=== PATIENT | female | born 1995 | race Caucasian/White ===

== ENCOUNTER 2017-03-23 13:16 | Emergency (ER) | payer OTHER ==
[~2017-03-23] VITALS: Ht 165.1 cm; Wt 73.1 kg
[~2017-03-23 13:16] MED LIST: ADDERALL XR 3030 MG PO; AMOXICILLIN500 M1 PO; CLINDAMYCIN HC150 MG PO; CLONIDINE HCL0.1 MG PO; DEPAKOTE250 MG PO; Feosol; LAMICTAL200 MG PO; LITHIUM CARBON300 MG PO; LITHIUM CARBON450 MG PO; Motrin PO; NORCO 5/3251 TABLET PO; ORTHO EVRA PA1 PATCH PO; OXYCODONE HCL5 MG PO; QUETIAPINE FUM100 MG PO; RISPERDAL1 MG PO; RISPERDAL2 M1 PO; TRAZODONE HCL150 MG PO; TRAZODONE HCL50 MG PO; TYLENOL EXTRA500 MG PO; TYLENOL WITH C1 EACH PO; ULTRAM50 MG PO; VYVANSE20 MG PO; VYVANSE50 MG PO; ZOLOFT20 MG/ML
[2017-03-23] MEDS ORDERED: NARCAN4 MG NS (15:00)
[2017-03-23 15:17] VITALS: BP 99/68
== END 2017-03-23 15:18 | disposition home or self-care (01) ==
LOC: EME → EDBD 13:16 → EME 13:16
DX: T40.1X1A Poisoning by heroin, accidental (unintentional), initial encounter (principal); F17.200 Nicotine dependence, unspecified, uncomplicated
CPT/HCPCS: 99281; 99283

== ENCOUNTER 2017-08-12 01:32 | Emergency (ER) | payer OTHER ==
[~2017-08-12] VITALS: Ht 165.1 cm; Wt 66.9 kg
[~2017-08-12 01:32] MED LIST changes: +NARCAN4 MG NS
[2017-08-12] MEDS ORDERED: MOTRIN600 MG PO (02:13)
[2017-08-12] MEDS ORDERED: AUGMENTIN875 MG PO (02:13)
[2017-08-12] MEDS ORDERED: BACTROBAN OINTM22 GM TP (02:27)
[2017-08-12 02:30] VITALS: BP 108/81
== END 2017-08-12 02:31 | disposition home or self-care (01) ==
LOC: EME 01:32
DX: K04.7 Periapical abscess without sinus (principal); F17.200 Nicotine dependence, unspecified, uncomplicated
CPT/HCPCS: 99281; 99283

== ENCOUNTER 2017-09-16 08:11 | Emergency (ER) | payer OTHER ==
[~2017-09-16] VITALS: Ht 165.1 cm; Wt 67.2 kg
[~2017-09-16 08:11] MED LIST changes: +AUGMENTIN875 MG PO; +BACTROBAN OINTM22 GM TP; +MOTRIN600 MG PO
[2017-09-16] MEDS ORDERED: ERYTHROMYC1 APPLICAT RIGHT EYE (08:39)
[2017-09-16 08:48] VITALS: BP 112/76
== END 2017-09-16 08:58 | disposition home or self-care (01) ==
LOC: EME 08:11
DX: H10.9 Unspecified conjunctivitis (principal); J02.9 Acute pharyngitis, unspecified; R05 Cough; F17.200 Nicotine dependence, unspecified, uncomplicated
CPT/HCPCS: 99281; 99284

== ENCOUNTER 2017-09-21 07:56 | Emergency (ER) | payer OTHER ==
[~2017-09-21] VITALS: Ht 165.1 cm; Wt 65.8 kg
[~2017-09-21 07:56] MED LIST changes: +ERYTHROMYC1 APPLICAT RIGHT EYE
[2017-09-21] MEDS ORDERED: PEN-VEE K,VEET500 MG PO (08:48)
[2017-09-21] MEDS ORDERED: NAPROSYN500 MG PO (08:48)
[2017-09-21 09:08] VITALS: BP 148/74
== END 2017-09-21 09:09 | disposition home or self-care (01) ==
LOC: EME 07:56
DX: K02.9 Dental caries, unspecified (principal); F17.200 Nicotine dependence, unspecified, uncomplicated
CPT/HCPCS: 99281; 99283

== ENCOUNTER 2017-09-30 20:06 | Emergency (ER) | payer OTHER ==
[~2017-09-30] VITALS: Ht 165.1 cm; Wt 62.4 kg
[~2017-09-30 20:06] MED LIST changes: +NAPROSYN500 MG PO; +PEN-VEE K,VEET500 MG PO
[2017-09-30 22:33] LABS: HEMATOCRIT 45.2 % (36.0-46.0); HEMOGLOBIN 15.3 G/DL (11.9-15.5); MCH 30.7 PG (29.0-34.0); MCHC 33.8 G/DL (30.0-36.0); MCV 90.8 FL (83-99); PLATELET COUNT 374 K/uL (156-360); RBC DIS.WIDTH-CV 11.2 % (11.8-14.6); RBC DIS.WIDTH-SD 37.5 % (39-53); RED BLOOD COUNT 4.98 M/uL (3.80-5.20); WHITE BLOOD COUNT 12.4 K/uL (4.1-10.2)
[2017-09-30 22:45] LABS: ALBUMIN 4.5 g/dL (3.2-4.8); CHLORIDE 99 mEq/L (99-109); POTASSIUM 3.5 mEq/L (3.7-5.4); SODIUM 139 mEq/L (136-147)
[2017-09-30 22:47] LABS: GLUCOSE 92 mg/dL (70-99)
[2017-09-30 22:48] LABS: TOTAL PROTEIN 7.7 g/dL (6.4-8.3)
[2017-09-30 22:49] LABS: TOTAL BILIRUBIN 0.5 mg/dL (0.0-1.0)
[2017-09-30 22:51] LABS: ALKALINE PHOSPHATASE 80 IU/L (3-129); CREATININE 0.7 mg/dL (0.6-1.3); GFR ESTIMATE (CALCULATED) > 59 mL/min/
[2017-09-30 22:52] LABS: UREA NITROGEN (BUN) 13 mg/dL (9-23)
[2017-09-30 22:53] LABS: AST (GOT) 43 IU/L (2-34)
[2017-09-30 22:54] LABS: ALT (GPT) 53 IU/L (3-49)
[2017-10-01 00:02] LABS: APPEARANCE CLOUDY ((CLEAR)); BILIRUBIN NEGATIVE; BLOOD NEGATIVE; COLOR YELLOW ((YELLOW)); GLUCOSE (STRIP) NEGATIVE; KETONES NEGATIVE; LEUKOCYTES NEGATIVE; NITRITE NEGATIVE; PROTEIN (STRIP) 30; SPECIFIC GRAVITY 1.016 (1.000-1.030); UROBILINOGEN 0.2 MG/DL (0.2-1.0)
[2017-10-01] MEDS ORDERED: KEFLEX500 MG PO (00:29)
[2017-10-01] MEDS ORDERED: BACTRIM,SEPT1 TABLET PO (00:29)
[2017-10-01 00:30] LABS: EPITHELIAL CELLS 1+ /HPF; MUCUS 1+ /LPF; RED BLOOD CELLS NONE SEEN /HPF (0-5); WHITE BLOOD CELLS 0-5 /HPF (0-5)
[2017-10-01 00:31] LABS: AMORPHOUS PHOSPHATE CRYSTALS 2+; BACTERIA 2+ /HPF
[2017-10-01] MEDS ORDERED: ZOFRAN4 MG PO (00:41)
[2017-10-01 01:02] LABS: QUANTITATIVE HCG < 4.0 MIU/ML
[2017-10-01] MEDS ORDERED: ATARAX,VISTARIL50 MG PO (01:19)
[2017-10-01] MEDS ORDERED: CLONIDINE HCL0.1 MG PO (01:19)
[2017-10-01 01:31] VITALS: BP 114/69
== END 2017-10-01 01:32 | disposition home or self-care (01) ==
LOC: EME 20:06
PROVIDERS: Physician Assistant
DX: R11.2 Nausea with vomiting, unspecified (principal); L03.111 Cellulitis of right axilla; F11.23 Opioid dependence with withdrawal; F17.200 Nicotine dependence, unspecified, uncomplicated; F90.9 Attention-deficit hyperactivity disorder, unspecified type; F31.9 Bipolar disorder, unspecified
CPT/HCPCS: 80053; 81003; 84702; 85027; 99281; 99284; J2405; J7030

== ENCOUNTER 2017-10-02 18:16 | Emergency (ER) | payer OTHER ==
[~2017-10-02] VITALS: Ht 165.1 cm; Wt 67.1 kg
[~2017-10-02 18:16] MED LIST changes: +ATARAX,VISTARIL50 MG PO; +BACTRIM,SEPT1 TABLET PO; +KEFLEX500 MG PO; +ZOFRAN4 MG PO
[2017-10-02 18:56] VITALS: BP 120/74
== END 2017-10-02 20:08 | disposition left against medical advice (07) ==
LOC: EME 18:16
DX: H57.8 Other specified disorders of eye and adnexa (principal); Z53.21 Procedure and treatment not carried out due to patient leaving prior to being seen by health care provider

== ENCOUNTER → 2018-05-19 | Outpatient (CLI) | payer OTHER ==
[~2018-05-19] MED LIST changes: +PRENATAL TABLE1 EAC3 PO
[2018-05-19 13:10] VITALS: BP 114/56
== END | disposition home or self-care (01) ==
LOC: IVINF 11:30
DX: Z34.80 Encounter for supervision of other normal pregnancy, unspecified trimester (principal); Z31.82 Encounter for Rh incompatibility status; Z3A.00 Weeks of gestation of pregnancy not specified; Z67.91 Unspecified blood type, Rh negative
CPT/HCPCS: J2790